=== PATIENT | female | born 1935 | race Hispanic/Latino ===

== ENCOUNTER 2019-01-31 13:41 | Inpatient (IN) | payer OTHER ==
[~2019-01-31] VITALS: Ht 152.4 cm; Wt 63.0 kg
[~2019-01-31 13:41] MED LIST: CALC600T12 PO; CARV3.12 PO; FERR325T29 PO; FURO20TA4 PO; INSU300I SQ; LEVO150T11 PO; LISI10TA7 PO; OMEP20CA10 PO; PRAV20TA4 PO; SITA50TA PO; SULF1TAB42 PO; TYL3 PO
[2019-01-31 14:00] LABS: APPEARANCE,URINE CLEAR (CLEAR); BILIRUBIN,URINE NEGATIVE (NEGATIVE); COLOR,URINE YELLOW (YELLOW); GLUCOSE, URINE (UA) NEGATIVE (NEGATIVE); KETONES,URINE NEGATIVE (NEGATIVE); LEUKOCYTE ESTERASE ,URINE NEGATIVE (NEGATIVE); NITRATE,URINE NEGATIVE (NEGATIVE); OCCULT BLOOD,URINE NEGATIVE (NEGATIVE); PH,URINE 5.5 (5.0-8.0); PROTEIN,URINE TRACE mg/dL (NEGATIVE); UROBILINOGEN,URINE 0.2 mg/dL (0.2-1.0)
[2019-01-31 14:02] LABS: BASOPHILS % (AUTO) 0.5 % (0.0-5.0); EOSINOPHILS % (AUTO) 0.9 % (0.0-8.0); HEMATOCRIT 26.3 % (36-48); LYMPHOCYTES % (AUTO) 37.3 % (21.0-51.0); MEAN CORPUSCULAR HEMOGLOBIN 26.2 pg (27.0-33.0); MEAN CORPUSCULAR HGB CONC 32.5 g/dL (32.0-36.0); MEAN CORPUSCULAR VOLUME 80.7 fL (79-99); MONOCYTES % (AUTO) 12.7 % (3.0-13.0); NEUTROPHILS % (AUTO) 48.6 % (40.0-77.0); PLATELET COUNT (AUTO) 373 K/uL (130-400); RED BLOOD CELL COUNT(AUTO) 3.26 MIL/uL (4.00-5.50); RED CELL DISTRIBUTION WIDTH 14.3 % (11.0-15.5); WHITE BLOOD COUNT (AUTO) 8.1 K/uL (4.8-10.8)
[2019-01-31 14:10] LABS: CREATININE 1.3 mg/dL (0.5-1.5)
[2019-01-31 14:10] LABS: BACTERIA,URINE Rare /HPF (None Seen); MUCUS,URINE Rare LPF (None Seen); RBC,URINE 0-1 /HPF (0-1); SQUAMOUS EPITHELIAL CELL,UR Rare /HPF (0-2); WBC,URINE 0-1 /HPF (0-1)
[2019-01-31] MEDS ORDERED: ONDANSETRON ODT 4 MG TAB ONE (14:14)
[2019-01-31] MEDS ORDERED: MORPHINE SULFATE 4 MG/1ML SYG ONE ×2 (14:15→17:52)
[2019-01-31] MEDS ORDERED: ONDANSETRON HCL 4 MG/2 ML VIAL IV PRN (20:15)
[2019-01-31] MEDS ORDERED: ACETAMINOPHEN 325 MG TAB PO PRN ×2 (20:15)
[2019-01-31] MEDS: FAMOTIDINE/PF 20 MG/2 ML VIAL IV SCH (21:00)
[2019-01-31] MEDS: ENOXAPARIN SODIUM 30 MG/0.3 ML SQ SCH (21:00)
[2019-01-31] MEDS ORDERED: ENOXAPARIN SODIUM 30 MG/0.3 ML SQ ONE (21:38)
[2019-01-31] MEDS ORDERED: FAMOTIDINE/PF 20 MG/2 ML VIAL IV ONE (21:39)
[2019-01-31 22:15] VITALS: BP 137/77
[2019-01-31] MEDS ORDERED: CLOP75TA32 PO (22:41)
[2019-01-31] MEDS ORDERED: LINA5TAB PO (22:41)
[2019-01-31] MEDS ORDERED: ACET1TAB12 PO (22:41)
[2019-01-31] MEDS ORDERED: CETI10TA86 PO (22:41)
[2019-01-31] MEDS ORDERED: GLUCAGON 1MG KIT 1 MG ML IM PRN (23:00)
[2019-01-31] MEDS ORDERED: DEXTROSE 50%-WATER 50 ML DISP.SYRIN IV PRN (23:00)
[2019-01-31] MEDS: MORPHINE SULFATE 2 MG/ML 1ML SYG IV PRN (23:31)
[2019-02-01 04:00] VITALS: BP 122/50
[2019-02-01] MEDS: MORPHINE SULFATE 2 MG/ML 1ML SYG IV PRN ×2 (05:23→09:53)
[2019-02-01] MEDS: INSULIN HUMULIN R 100 UNIT/ML 3ML SQ SCH ×4 (06:03→21:00)
[2019-02-01 08:00] VITALS: BP 151/61
[2019-02-01] MEDS: FAMOTIDINE/PF 20 MG/2 ML VIAL IV SCH ×2 (08:54→21:59)
[2019-02-01] MEDS: ENOXAPARIN SODIUM 30 MG/0.3 ML SQ SCH ×2 (08:55→22:00)
--- NOTE | 2019-02-01 10:10 | NUR ---
ORTHO DR. RAI CALLED TO ANSWER CONSULT PAGE. NEW ORDERS RECEIVED.
[2019-02-01] MEDS: HYDROCODONE/ACETAMINOPHEN 7.5/325 MG TAB PO SCH ×4 (10:30→22:00)
[2019-02-01 11:45] VITALS: BP 131/93
--- NOTE | 2019-02-01 16:00 | NUR ---
PRISCILLA IA MET W PT, CELESTINA, AAOX3, ENG/SINHALA SPKG, VERY [place]; LIVE ALONE, SON ON FACE SHEET WRKS A LOT , HARD TO HELP; BROTHER AISSATOU GARNETT TAKES TO MD ETC. NO PROVIDER SERVICES, HAS WKR WC; STATES "I WAS AT [facility] FOR 100 DAYS; THEN WAS TOLD I HAD TO LEAVE, I OWED A LOT OF MONEY, I DO NOT QUALIFY FOR MEDICAID OR PROVIDER SERVICES' ON THIS ADMIT HAS MOBILITY PROBLEMS , POSS NEED FOR SKILLED CARE, WILL FOLLOW NEEDED Addendum: 02/01/19 at 2001 by JAIMEE GARCIA RN CM Amended: Links added.
[2019-02-01 16:30] VITALS: BP 131/47
--- NOTE | 2019-02-01 18:30 | NUR ---
HOSPITALIST DR. MARIO IN TO SEE PATIENT. NEW ORDERS RECEIVED. DRESSING TO RIGHT FOOT REMOVED AND REDRESSED PER MD ORDER WITH WET TO DRY DRESSING. PATIENT TOLERATED WELL.
[2019-02-01] MEDS ORDERED: SODIUM CHLORIDE 0.9% 1000ML 1,000 ML IV SCH (18:42)
[2019-02-01 19:50] VITALS: BP 157/82
[2019-02-02 00:08] VITALS: BP 128/65
[2019-02-02] MEDS: HYDROCODONE/ACETAMINOPHEN 7.5/325 MG TAB PO SCH ×6 (02:15→22:15)
[2019-02-02 04:20] VITALS: BP 116/50
[2019-02-02 05:16] LABS: MEAN CORPUSCULAR HEMOGLOBIN 26.8 pg (27.0-33.0); MEAN CORPUSCULAR HGB CONC 33.1 g/dL (32.0-36.0); MEAN CORPUSCULAR VOLUME 80.9 fL (79-99); PLATELET COUNT (AUTO) 346 K/uL (130-400); RED BLOOD CELL COUNT(AUTO) 2.59 MIL/uL (4.00-5.50); RED CELL DISTRIBUTION WIDTH 14.2 % (11.0-15.5)
[2019-02-02 05:19] LABS: HEMATOCRIT 20.9 % (36-48)
[2019-02-02 05:24] LABS: CREATININE 1.5 mg/dL (0.5-1.5); POTASSIUM 4.3 mmol/L (3.5-5.1)
[2019-02-02 05:37] LABS: CRP QUANTITATIVE 203.9 mg/L (0.00-9.0)
[2019-02-02] MEDS: INSULIN HUMULIN R 100 UNIT/ML 3ML SQ SCH ×4 (06:20→20:43)
[2019-02-02 06:24] LABS: ERYTHROCYTE SEDIMENTATION RATE 142 MM/HR (0-30)
[2019-02-02] MEDS ORDERED: SODIUM CHLORIDE 0.9% 250 ML IV ONE (07:55)
[2019-02-02 08:00] VITALS: BP 139/68
[2019-02-02] MEDS: FAMOTIDINE/PF 20 MG/2 ML VIAL IV SCH ×2 (08:53→20:15)
[2019-02-02] MEDS ORDERED: VANCOMYCIN PROTOCOL PER PHARMACY IV PRN (09:00)
[2019-02-02] MEDS ORDERED: VANCOMYCIN 1GM+NS 250ML 250 ML IV SCH (09:00)
[2019-02-02] MEDS: VANCOMYCIN 1GM+NS 250ML 250 ML IV SCH (09:15)
[2019-02-02 11:38] VITALS: BP 156/70
[2019-02-02] MEDS: ZOSYN 3.375GM+NS 50ML 50 ML IV SCH ×2 (13:22→20:15)
[2019-02-02 16:44] VITALS: BP 155/61
[2019-02-02 20:00] VITALS: BP 159/63
[2019-02-02] MEDS ORDERED: METOPROLOL TARTRATE 25 MG TAB PO SCH (21:00)
[2019-02-02 21:59] LABS: % IRON SATURATION 5.8 % (22-44)
[2019-02-03] VITALS (7 sets, daily range): BP systolic 102–153; BP diastolic 50–86
[2019-02-03] MEDS: HYDROCODONE/ACETAMINOPHEN 7.5/325 MG TAB PO SCH ×6 (02:13→22:24)
[2019-02-03] MEDS: LACTULOSE 20 GM/30 ML UDCUP PO PRN (03:36)
[2019-02-03] MEDS: ZOSYN 3.375GM+NS 50ML 50 ML IV SCH ×3 (04:09→20:20)
[2019-02-03 05:55] LABS: BASOPHILS % (AUTO) 0.7 % (0.0-5.0); EOSINOPHILS % (AUTO) 4.3 % (0.0-8.0); HEMATOCRIT 28.5 % (36-48); LYMPHOCYTES % (AUTO) 26.5 % (21.0-51.0); MEAN CORPUSCULAR HEMOGLOBIN 27.9 pg (27.0-33.0); MEAN CORPUSCULAR HGB CONC 33.8 g/dL (32.0-36.0); MEAN CORPUSCULAR VOLUME 82.7 fL (79-99); MONOCYTES % (AUTO) 11.3 % (3.0-13.0); NEUTROPHILS % (AUTO) 57.2 % (40.0-77.0); PLATELET COUNT (AUTO) 339 K/uL (130-400); RED BLOOD CELL COUNT(AUTO) 3.45 MIL/uL (4.00-5.50); RED CELL DISTRIBUTION WIDTH 15.8 % (11.0-15.5); WHITE BLOOD COUNT (AUTO) 7.5 K/uL (4.8-10.8)
[2019-02-03 06:01] LABS: HEMOGLOBIN A1C 8.5 % (4.0-6.0)
[2019-02-03 06:07] LABS: CREATININE 1.3 mg/dL (0.5-1.5); MAGNESIUM 1.3 mg/dL (1.80-2.40); PHOSPHORUS 2.6 mg/dL (2.5-4.9); POTASSIUM 4.1 mmol/L (3.5-5.1)
[2019-02-03] MEDS: INSULIN HUMULIN R 100 UNIT/ML 3ML SQ SCH ×4 (06:18→20:20)
[2019-02-03] MEDS: MAGNESIUM 2GM PREMIX 50ML 50 ML IV PRN (06:36)
[2019-02-03 07:01] LABS: ERYTHROCYTE SEDIMENTATION RATE 122 MM/HR (0-30)
[2019-02-03] MEDS ORDERED: IOHEXOL 350 MG/ML 100ML INFUS..BTL IV ONE (10:06)
[2019-02-03] MEDS: FAMOTIDINE/PF 20 MG/2 ML VIAL IV SCH ×2 (10:08→20:20)
[2019-02-03] MEDS: VANCOMYCIN 1GM+NS 250ML 250 ML IV SCH (10:09)
--- NOTE | 2019-02-03 10:25 | NUR ---
TO CT SCAN VIA BED , FOR THE ANGIOGRAM RUNOFF .
--- NOTE | 2019-02-03 11:50 | NUR ---
DR. RAI HERE AND SPOKE WITH FAMILY REGARDING, REMOVE HER RT HEEL DRSG . FOR ASSESSMENT .DR RAI EXPLAIN TO PT OF PENDING RESULTS OF THE CT SCAN ANGIOGRAM.. AND NEEDED TO DECIDE . WHAT SHE WANTED TO HAVE DONE,,, DRSG REAPPLICATION DONE, CLEANSE WOUND WITH SALINE, AND PAD DRY AND STERILE . GAUZE , AND WRAP WITH THE KERLIX . TOLERATE WELL. ELEVATED UP RT LEG ON PILLOW WITH NO PRESSURE TO HEEL AREA SKIN TISSUE RED, AND PINK NOTED NO NECROSIS AREAS . CALL LIGHT IN REACH .
[2019-02-04] MEDS: HYDROCODONE/ACETAMINOPHEN 7.5/325 MG TAB PO SCH ×6 (01:53→22:15)
[2019-02-04 04:00] VITALS: BP 148/50
[2019-02-04] MEDS: ZOSYN 3.375GM+NS 50ML 50 ML IV SCH ×4 (04:27→22:55)
[2019-02-04 06:23] LABS: BASOPHILS % (AUTO) 0.3 % (0.0-5.0); CREATININE 1.3 mg/dL (0.5-1.5); EOSINOPHILS % (AUTO) 3.3 % (0.0-8.0); HEMATOCRIT 28.8 % (36-48); LYMPHOCYTES % (AUTO) 21.1 % (21.0-51.0); MEAN CORPUSCULAR HEMOGLOBIN 27.9 pg (27.0-33.0); MEAN CORPUSCULAR HGB CONC 33.9 g/dL (32.0-36.0); MEAN CORPUSCULAR VOLUME 82.3 fL (79-99); MONOCYTES % (AUTO) 8.2 % (3.0-13.0); NEUTROPHILS % (AUTO) 67.1 % (40.0-77.0); PLATELET COUNT (AUTO) 359 K/uL (130-400); POTASSIUM 4.1 mmol/L (3.5-5.1); RED CELL DISTRIBUTION WIDTH 16.2 % (11.0-15.5); WHITE BLOOD COUNT (AUTO) 9.5 K/uL (4.8-10.8)
[2019-02-04] MEDS: INSULIN HUMULIN R 100 UNIT/ML 3ML SQ SCH ×4 (06:36→21:00)
[2019-02-04 07:52] VITALS: BP 155/48
[2019-02-04] MEDS: FAMOTIDINE/PF 20 MG/2 ML VIAL IV SCH ×2 (08:51→21:10)
--- NOTE | 2019-02-04 10:22 | NUR ---
DR. GRISSOM PAGED . NO. CALLED OF [phone] , PAGER . NO . LEFT TO RETURN CALL
--- NOTE | 2019-02-04 11:00 | NUR ---
DR. GRISSOM OFFICE CALLED , [phone] . STAFF STATED THAT DR. GRISSOM IS NOT IN THE OFFICE, MONDAYS . REPAGED TO NO.[phone]
[2019-02-04 11:34] VITALS: BP 158/60
--- NOTE | 2019-02-04 11:55 | NUR ---
DR. GRISSOM WAS CALLED ,AND REPORT GIVEN REGARDING THE CT ANGIOGRAM DONE. FOR HER ON THE02/03/19, FINDINGS READ TO DR. GRISSOM. . WILL COME IN TO SEE THE PT..
--- NOTE | 2019-02-04 14:24 | NUR ---
CHART REVIEWED COMPLEX DECISION MAKING PRE MDS REQUIRED. PT FRAGILE AND IWLL REQUIRE AFTTER CARE, HAS ALREAYD ADVISED CM THAT SHE 'STAYED 100 DAYS AT A FACILITY AND NOW SHE HAS A BIG BILL AND CANNOT GO BACK' WILL WAIT FOR FURTHER DEVELOPMENTS IN THE PLAN OF CARE. NO ORDERS YET TO SEEK PLACEMENT
[2019-02-04 16:00] VITALS: BP 163/54
--- NOTE | 2019-02-04 19:40 | NUR ---
DR. GRISSOM HERE ,AND SPOKE WITH SON, ANDI REGARDING OF PT. CARE .
[2019-02-04 21:53] VITALS: BP 181/66
[2019-02-05] VITALS (7 sets, daily range): BP systolic 126–182; BP diastolic 59–96
[2019-02-05] MEDS: HYDROCODONE/ACETAMINOPHEN 7.5/325 MG TAB PO SCH ×5 (01:29→21:21)
[2019-02-05 04:21] LABS: BASOPHILS % (AUTO) 0.5 % (0.0-5.0); EOSINOPHILS % (AUTO) 4.4 % (0.0-8.0); HEMATOCRIT 27.6 % (36-48); LYMPHOCYTES % (AUTO) 21.9 % (21.0-51.0); MEAN CORPUSCULAR HEMOGLOBIN 28.3 pg (27.0-33.0); MEAN CORPUSCULAR HGB CONC 33.9 g/dL (32.0-36.0); MEAN CORPUSCULAR VOLUME 83.3 fL (79-99); MONOCYTES % (AUTO) 11.1 % (3.0-13.0); NEUTROPHILS % (AUTO) 62.1 % (40.0-77.0); PLATELET COUNT (AUTO) 359 K/uL (130-400); RED BLOOD CELL COUNT(AUTO) 3.31 MIL/uL (4.00-5.50); RED CELL DISTRIBUTION WIDTH 16.1 % (11.0-15.5); WHITE BLOOD COUNT (AUTO) 7.1 K/uL (4.8-10.8)
[2019-02-05 04:46] LABS: CREATININE 1.1 mg/dL (0.5-1.5); POTASSIUM 3.9 mmol/L (3.5-5.1)
[2019-02-05] MEDS: ZOSYN 3.375GM+NS 50ML 50 ML IV SCH ×3 (05:39→21:21)
[2019-02-05] MEDS: INSULIN HUMULIN R 100 UNIT/ML 3ML SQ SCH ×4 (06:49→21:00)
[2019-02-05] MEDS ORDERED: VANCOMYCIN 1GM+NS 250ML 250 ML IV SCH (09:00)
[2019-02-05] MEDS: FAMOTIDINE/PF 20 MG/2 ML VIAL IV SCH ×2 (09:26→21:21)
[2019-02-05] MEDS: VANCOMYCIN 1GM+NS 250ML 250 ML IV SCH (09:27)
--- NOTE | 2019-02-05 11:30 | NUR ---
obtain wound care orders pt had at home from home health ask dr. craig if ok to continue here in the hospital stated, to hold on wound care since pt has not improved in the last 6 months with those orders
--- NOTE | 2019-02-05 14:06 | NUR ---
WOUND CARE CHRISTEL DAVIS
--- NOTE | 2019-02-05 16:00 | NUR ---
dr. menon rounded on pt stated will talk to dr. caldera and was thinking of instead of a right below the knee amputation to to a partial heel amputation but will talk about it with dr. caldera no orders to consult dr. caldera yet
--- NOTE | 2019-02-05 18:51 | NUR ---
Nutrition Intervention: Nutrition screen based on LOS x 5 days. Pt. admitted with Dx of Left Knee Effusion, Intractable Pain, Osteoarthritis. Pt. on 75gm CCD diet with good p.o. intake, per pt. Labs reviewed(Alb 2.0, BG 156, HgbA1c 8.5%). LBM: 02/04/19. SR-18, elastic. Pt. with 1+ edema to LLE. BMI: 27.1, normal for age. Pt. educated on diabetic diet and provided with education material. Pt. verbalized understanding. Recommendations: 1) Continue current diet. 2) Rec. 30ml ProMod TID with meals. 3) Diabetic diet education given to patient. 4) Continue to monitor pt's nutritional status. 5) Consult RD as nutrition concerns arise. Addendum: 02/05/19 at [address] Amended: Links added.
--- NOTE | 2019-02-05 18:52 | NUR ---
dr. craig rounded on pt inform of dr. menon's orders and dr. menon's plans of communicating with dr. werner nguyen spoke w patient but pt at end stated that she would rather have him talk to her brother as per pt's wishes and dr. gabriel orders, have pt's brother here tomorrow from 4-[address] gabriel will speak to him about options and possible plan of care brother called, and inform of above . stated will be here at that time .
[2019-02-05] MEDS ORDERED: HYDRALAZINE HCL 20 MG/ML VIAL IV PRN (21:45)
[2019-02-06] VITALS (8 sets, daily range): BP systolic 108–176; BP diastolic 59–87
[2019-02-06] MEDS: HYDROCODONE/ACETAMINOPHEN 7.5/325 MG TAB PO SCH ×6 (02:15→22:15)
[2019-02-06 04:40] LABS: HEMATOCRIT 29.5 % (36-48); MEAN CORPUSCULAR HEMOGLOBIN 27.3 pg (27.0-33.0); MEAN CORPUSCULAR HGB CONC 32.8 g/dL (32.0-36.0); MEAN CORPUSCULAR VOLUME 83.3 fL (79-99); PLATELET COUNT (AUTO) 435 K/uL (130-400); RED BLOOD CELL COUNT(AUTO) 3.54 MIL/uL (4.00-5.50); RED CELL DISTRIBUTION WIDTH 16.1 % (11.0-15.5); WHITE BLOOD COUNT (AUTO) 7.4 K/uL (4.8-10.8)
[2019-02-06 05:15] LABS: CREATININE 1.1 mg/dL (0.5-1.5); CRP QUANTITATIVE 161.8 mg/L (0.00-9.0); MAGNESIUM 1.4 mg/dL (1.80-2.40); PHOSPHORUS 2.5 mg/dL (2.5-4.9); POTASSIUM 3.8 mmol/L (3.5-5.1)
[2019-02-06] MEDS: ZOSYN 3.375GM+NS 50ML 50 ML IV SCH ×3 (05:38→20:56)
[2019-02-06 05:53] LABS: ERYTHROCYTE SEDIMENTATION RATE 128 MM/HR (0-30)
[2019-02-06] MEDS: INSULIN HUMULIN R 100 UNIT/ML 3ML SQ SCH ×4 (06:21→20:56)
[2019-02-06] MEDS: LEVOTHYROXINE 150 MCG TABLET PO SCH (06:42)
[2019-02-06] MEDS: LISINOPRIL 5 MG TABLET PO SCH (08:56)
[2019-02-06] MEDS: FUROSEMIDE 20 MG TABLET PO SCH (08:56)
[2019-02-06] MEDS: LINAGLIPTIN 5 MG TABLET PO SCH (08:56)
[2019-02-06] MEDS: FAMOTIDINE/PF 20 MG/2 ML VIAL IV SCH ×2 (08:57→20:54)
[2019-02-06] MEDS: VANCOMYCIN 1GM+NS 250ML 250 ML IV SCH (08:57)
--- NOTE | 2019-02-06 10:00 | NUR ---
DR. VIJAY JEFFERSON PAGED REGARDING CONSULT. AWAITING CALLBACK.
[2019-02-06] MEDS: MAGNESIUM 2GM PREMIX 50ML 50 ML IV PRN (17:47)
[2019-02-06] MEDS: ATORVASTATIN CALCIUM 10 MG TABLET PO SCH (20:55)
[2019-02-07] MEDS: HYDROCODONE/ACETAMINOPHEN 7.5/325 MG TAB PO SCH ×5 (02:15→17:27)
[2019-02-07 03:16] VITALS: BP 143/51
[2019-02-07 04:10] LABS: HEMATOCRIT 29.6 % (36-48); MEAN CORPUSCULAR HEMOGLOBIN 28.4 pg (27.0-33.0); MEAN CORPUSCULAR HGB CONC 34.4 g/dL (32.0-36.0); MEAN CORPUSCULAR VOLUME 82.5 fL (79-99); PLATELET COUNT (AUTO) 465 K/uL (130-400); RED BLOOD CELL COUNT(AUTO) 3.59 MIL/uL (4.00-5.50); RED CELL DISTRIBUTION WIDTH 16.3 % (11.0-15.5); WHITE BLOOD COUNT (AUTO) 6.6 K/uL (4.8-10.8)
[2019-02-07 04:22] LABS: CREATININE 1.1 mg/dL (0.5-1.5); POTASSIUM 3.6 mmol/L (3.5-5.1)
[2019-02-07] MEDS: ZOSYN 3.375GM+NS 50ML 50 ML IV SCH ×3 (05:34→21:09)
[2019-02-07] MEDS: LEVOTHYROXINE 150 MCG TABLET PO SCH (05:53)
[2019-02-07] MEDS: INSULIN HUMULIN R 100 UNIT/ML 3ML SQ SCH ×4 (06:19→21:12)
--- NOTE | 2019-02-07 07:03 | NUR ---
PATIENT UPDATE Pt slept well overnight, scheduled pain med wasn't given as scheduled. Not in any form of discomfort last night, stated that she's pain free at 0400. Was given the [place] 1 tab at 0600 when she complained about the left knee pain. Patient pending xray of the rt foot 3 views as well as mri without contrast as per Dr. Cook's order for this am. Talked to brother over the phone about the plan of care for today, concerns addressed.
[2019-02-07 07:53] VITALS: BP 146/58
[2019-02-07] MEDS ORDERED: HONEY 1 APPL/ML TUBE TP SCH ×2 (09:00→10:21)
[2019-02-07 11:06] VITALS: BP 168/60
[2019-02-07] MEDS: LINAGLIPTIN 5 MG TABLET PO SCH (11:13)
[2019-02-07] MEDS: FAMOTIDINE/PF 20 MG/2 ML VIAL IV SCH ×2 (11:13→21:09)
[2019-02-07] MEDS: FUROSEMIDE 20 MG TABLET PO SCH (11:14)
[2019-02-07] MEDS: LISINOPRIL 5 MG TABLET PO SCH (11:14)
[2019-02-07] MEDS: VANCOMYCIN 1GM+NS 250ML 250 ML IV SCH (11:15)
[2019-02-07 16:31] VITALS: BP 162/98
[2019-02-07] MEDS: LACTULOSE 20 GM/30 ML UDCUP PO PRN (17:27)
[2019-02-07 19:27] VITALS: BP 150/60
[2019-02-07] MEDS: ATORVASTATIN CALCIUM 10 MG TABLET PO SCH (21:09)
[2019-02-07 23:23] VITALS: BP 145/58
[2019-02-08] MEDS: HYDROCODONE/ACETAMINOPHEN 7.5/325 MG TAB PO SCH ×5 (02:15→22:15)
[2019-02-08 03:20] VITALS: BP 169/63
[2019-02-08 04:30] LABS: HEMATOCRIT 33.7 % (36-48); MEAN CORPUSCULAR HEMOGLOBIN 27.4 pg (27.0-33.0); MEAN CORPUSCULAR HGB CONC 33.5 g/dL (32.0-36.0); MEAN CORPUSCULAR VOLUME 81.8 fL (79-99); PLATELET COUNT (AUTO) 558 K/uL (130-400); RED BLOOD CELL COUNT(AUTO) 4.12 MIL/uL (4.00-5.50); RED CELL DISTRIBUTION WIDTH 16.5 % (11.0-15.5); WHITE BLOOD COUNT (AUTO) 7.3 K/uL (4.8-10.8)
[2019-02-08 04:33] LABS: CREATININE 1.1 mg/dL (0.5-1.5); POTASSIUM 3.3 mmol/L (3.5-5.1)
[2019-02-08] MEDS: ZOSYN 3.375GM+NS 50ML 50 ML IV SCH ×3 (05:40→22:14)
[2019-02-08] MEDS: LEVOTHYROXINE 150 MCG TABLET PO SCH ×2 (05:45→05:51)
[2019-02-08] MEDS: INSULIN HUMULIN R 100 UNIT/ML 3ML SQ SCH ×4 (05:46→22:29)
--- NOTE | 2019-02-08 07:00 | NUR ---
PATIENT UPDATE MEDICATED ONCE FOR PAIN THIS AM WITH NORCO. WAS VERY CONSTIPATED WITH THE LAST BM SINCE THE 8, WAS GIVEN LACTULOSE BY PREV SHIFT WHICH DIDNT WORK. PT OFFERED WARMED PRUNE JUICE WHICH SHE TOLERATED WELL, HAD A GOOD BOWEL MOVEMENT LAST NIGHT WELL EARLY AM TODAY. CONTINUES ON THE SAME REGIMEN PREV PRESCRIBED. DR. LINARES ROUNDED LAST NIGHT AND DISCUSSED ABOUT THE PLAN FOR SURGERY, TO HAVE THE BROTHER TALK TO THE PT AND THE REST OF THE FAMILY MEMBERS ABOUT THE PLAN AND WILL LET THE MD KNOW IF PT AGREES FOR THE SURGERY. PT AFEBRILE, VITAL SIGNS STABLE, DRESSING TO THE RT HEEL DRY AND INTACT.
[2019-02-08 08:00] VITALS: BP 142/58
--- NOTE | 2019-02-08 08:30 | NUR ---
DR. RAI CALLED STATED HE WILL NOT BE DOING A LEFT TKA AT THE MOMENT , SINCE THE RIGHT FOOT NEEDS TO BE ADDRESS FIRST DR. RAI STATED, DR. LINARES WILL BE PERFORMING A PARTIAL AMPUTATION OF THE BONE IN THE PT'S HEEL
[2019-02-08] MEDS: FAMOTIDINE/PF 20 MG/2 ML VIAL IV SCH ×2 (09:29→22:14)
[2019-02-08] MEDS: FUROSEMIDE 20 MG TABLET PO SCH (09:29)
[2019-02-08] MEDS: LINAGLIPTIN 5 MG TABLET PO SCH (09:29)
[2019-02-08] MEDS: LISINOPRIL 5 MG TABLET PO SCH (09:30)
[2019-02-08] MEDS ORDERED: VANCOMYCIN PROTOCOL PER PHARMACY IV SCH (10:45)
[2019-02-08] MEDS: VANCOMYCIN 1GM+NS 250ML 250 ML IV SCH (10:54)
[2019-02-08 12:00] VITALS: BP 156/64
--- NOTE | 2019-02-08 14:00 | NUR ---
DR. OLVERA AWARE OF PT'S CONSULT
--- NOTE | 2019-02-08 15:18 | NUR ---
DR. LINARES PAGED FOR POSSIBLE SX ORDERS
[2019-02-08 16:00] VITALS: BP 142/66
--- NOTE | 2019-02-08 16:00 | NUR ---
HOME HEALTH INFO RECD INTO THAT [facility] IS CURRENT [facility]- INFO ON IN THE IA BECAUSE PT DID NOT REMEMBER NAME Addendum: 02/08/19 at 1950 by JAIMEE GARCIA RN CM Amended: Links added.
--- NOTE | 2019-02-08 17:00 | NUR ---
PRISCILLA NOTE - SNF? PT VISITED BY PRISCILLA. AGAIN REQUEST TO CONSIDER DC PLANS. PT WAS AT [facility] FOR > 100 DAYS ; STATES THEY MADE HER LEAVE AND SHE OWES MONEY, SHE DOES NTO [facility] THEY WILL TAKE HER BACK, ADVISED PT THAT ANOTHER FACLITY WOULD BE ABLE TO FIND OUT IF MONEY WAS OWED. MAY BE BETTER TO BE ASSESSED BY [facility]. PT AGAIN DECLINED ANY DECISION RE SNF. PT STATES SHE WANTS SOMEONE TO HELP HER AT HOME. Addendum: 02/08/19 at 1949 by JAIMEE GARCIA RN CM Amended: Links added.
--- NOTE | 2019-02-08 17:09 | NUR ---
NO CALL BACK, DR. VIJAY CANALES GAIN, THIS TIME TO HIS CELLPHONE NO ANSWER WILL TRY AGAIN LATER
[2019-02-08 19:00] VITALS: BP 151/60
--- NOTE | 2019-02-08 19:00 | NUR ---
Received pt as a transfer fro 4rth floor per bed, son Lang Willis was notified.
--- NOTE | 2019-02-08 20:30 | NUR ---
PM Assessment Received pt with no family at the bedside, routine assessment done, pt confirm awareness plan for surgery tomorrow, pt wants to make sure surgery is only for her right heel & not to amputate her right leg. Assurance given that that is what was ordered. NPO post MN instructed to the pt & agreed to have a bed bath in Am at 0500. Pt currently denies discomfort. IV access to the LFA gauge 18 noted tender, (+) redness, no blood return, discontinue aseptically with catheter tip intact.
[2019-02-08] MEDS: ATORVASTATIN CALCIUM 10 MG TABLET PO SCH (22:15)
[2019-02-09] VITALS (21 sets, daily range): BP systolic 105–183; BP diastolic 48–73
[2019-02-09] MEDS: HYDROCODONE/ACETAMINOPHEN 7.5/325 MG TAB PO SCH ×6 (02:15→22:15)
[2019-02-09 05:05] LABS: BASOPHILS % (AUTO) 0.4 % (0.0-5.0); EOSINOPHILS % (AUTO) 2.8 % (0.0-8.0); HEMATOCRIT 32.7 % (36-48); MEAN CORPUSCULAR HEMOGLOBIN 27.5 pg (27.0-33.0); MEAN CORPUSCULAR HGB CONC 33.4 g/dL (32.0-36.0); MEAN CORPUSCULAR VOLUME 82.2 fL (79-99); MONOCYTES % (AUTO) 9.5 % (3.0-13.0); NEUTROPHILS % (AUTO) 57.3 % (40.0-77.0); NUCLEATED RED BLOOD CELLS 0.1 % (0.0-0.19); PLATELET COUNT (AUTO) 527 K/uL (130-400); RED BLOOD CELL COUNT(AUTO) 3.99 MIL/uL (4.00-5.50); RED CELL DISTRIBUTION WIDTH 16.3 % (11.0-15.5); WHITE BLOOD COUNT (AUTO) 8.6 K/uL (4.8-10.8)
[2019-02-09] MEDS: ZOSYN 3.375GM+NS 50ML 50 ML IV SCH ×3 (05:13→20:26)
[2019-02-09 05:23] LABS: CREATININE 1.2 mg/dL (0.5-1.5); POTASSIUM 3.2 mmol/L (3.5-5.1)
[2019-02-09] MEDS: INSULIN HUMULIN R 100 UNIT/ML 3ML SQ SCH ×4 (06:31→20:39)
[2019-02-09] MEDS: LEVOTHYROXINE 150 MCG TABLET PO SCH (07:30)
[2019-02-09] MEDS: LINAGLIPTIN 5 MG TABLET PO SCH (09:00)
[2019-02-09] MEDS: FUROSEMIDE 20 MG TABLET PO SCH (09:00)
[2019-02-09] MEDS: LISINOPRIL 5 MG TABLET PO SCH (09:00)
[2019-02-09] MEDS: VANCOMYCIN 1GM+NS 250ML 250 ML IV SCH (09:28)
[2019-02-09] MEDS: FAMOTIDINE/PF 20 MG/2 ML VIAL IV SCH ×2 (09:29→20:26)
[2019-02-09] MEDS ORDERED: SODIUM CHLORIDE 0.9% 1000ML 1,000 ML IV ONE (10:19)
[2019-02-09] MEDS ORDERED: PROPOFOL 10 MG/ML 20ML VIAL IV ONE (10:29)
[2019-02-09] MEDS ORDERED: FENTANYL CITRATE PF 50 MCG/1 ML 2ML VIAL ONE (10:29)
[2019-02-09] MEDS ORDERED: MIDAZOLAM HCL 1 MG/ML 2ML VIAL ONE (10:29)
[2019-02-09] MEDS ORDERED: LIDOCAINE HCL 1% 20 ML VIAL ONE (10:30)
[2019-02-09] MEDS ORDERED: BUPIVACAINE/PF 0.5% 30ML VIAL ONE (10:30)
--- NOTE | 2019-02-09 13:20 | NUR ---
PROCEDURE REPORT RECEIVED FROM JAQUELIN LIND (PACU). PATIENT S/P CUTTING OF THE SKIN SOFT TISSUE AND BONE WITH REMOVAL OF PORTION OF RIGHT HEEL BONE WITH RIGHT TENDON REPAIR. DRESSING DRY AND INTACT. PATIENT STABLE AT THIS TIME.
[2019-02-09] MEDS ORDERED: HYDROMORPHONE 1 MG/1 ML AMP IVP PRN (13:45)
[2019-02-09] MEDS ORDERED: MORPHINE SULFATE 2 MG/ML 1ML SYG IVP PRN (13:45)
[2019-02-09] MEDS: ATORVASTATIN CALCIUM 10 MG TABLET PO SCH (20:26)
[2019-02-10] VITALS (7 sets, daily range): BP systolic 144–164; BP diastolic 54–79
[2019-02-10] MEDS: HYDROCODONE/ACETAMINOPHEN 7.5/325 MG TAB PO SCH ×6 (01:03→23:16)
[2019-02-10 05:14] LABS: MEAN CORPUSCULAR HEMOGLOBIN 27.5 pg (27.0-33.0); MEAN CORPUSCULAR HGB CONC 33.6 g/dL (32.0-36.0); MEAN CORPUSCULAR VOLUME 81.9 fL (79-99); PLATELET COUNT (AUTO) 539 K/uL (130-400); RED BLOOD CELL COUNT(AUTO) 3.42 MIL/uL (4.00-5.50); RED CELL DISTRIBUTION WIDTH 16.7 % (11.0-15.5); WHITE BLOOD COUNT (AUTO) 9.7 K/uL (4.8-10.8)
[2019-02-10] MEDS: ZOSYN 3.375GM+NS 50ML 50 ML IV SCH ×3 (05:15→22:11)
[2019-02-10 05:20] LABS: CREATININE 1.2 mg/dL (0.5-1.5); MAGNESIUM 1.3 mg/dL (1.80-2.40); POTASSIUM 3.3 mmol/L (3.5-5.1)
[2019-02-10 05:40] LABS: EOSINOPHILS % (MANUAL) 1 % (1-6); LYMPHOCYTES % (MANUAL) 32 % (22-44); MAN.DIFF COMMENT-IMPRESSION MANUAL DIFFERENTIAL; MONOCYTES % (MANUAL) 5 % (2-9); SEGMENTED NEUTROPHILS % 62 % (40-70)
[2019-02-10] MEDS: INSULIN HUMULIN R 100 UNIT/ML 3ML SQ SCH ×4 (06:51→21:00)
[2019-02-10] MEDS: LEVOTHYROXINE 150 MCG TABLET PO SCH (06:52)
[2019-02-10] MEDS: FAMOTIDINE/PF 20 MG/2 ML VIAL IV SCH ×2 (08:54→22:09)
[2019-02-10] MEDS: LINAGLIPTIN 5 MG TABLET PO SCH (08:54)
[2019-02-10] MEDS: LISINOPRIL 5 MG TABLET PO SCH (08:54)
[2019-02-10] MEDS: FUROSEMIDE 20 MG TABLET PO SCH (08:54)
[2019-02-10] MEDS: VANCOMYCIN 1GM+NS 250ML 250 ML IV SCH (08:55)
--- NOTE | 2019-02-10 14:53 | NUR ---
SNF Met with pt this afternoon to discuss Md recommendations for SNF @ [place] for IV ABX. Pt w concerns regarding out of pocket costs. Informed her will not know unless facility runs her benefits. YANELY/PC consent obtained for [facility] as first choice, M[facility] and [facility]. Clinical faxedto [facility]. Susy informed of new referral.
[2019-02-10] MEDS: MAGNESIUM 2GM PREMIX 50ML 50 ML IV PRN (19:31)
[2019-02-10] MEDS: ATORVASTATIN CALCIUM 10 MG TABLET PO SCH (22:09)
[2019-02-11] VITALS (7 sets, daily range): BP systolic 136–179; BP diastolic 52–117
[2019-02-11] MEDS: HYDROCODONE/ACETAMINOPHEN 7.5/325 MG TAB PO SCH ×6 (02:15→22:40)
[2019-02-11 05:03] LABS: HEMATOCRIT 25.5 % (36-48); MEAN CORPUSCULAR HEMOGLOBIN 29.5 pg (27.0-33.0); MEAN CORPUSCULAR VOLUME 84.4 fL (79-99); PLATELET COUNT (AUTO) 434 K/uL (130-400); RED BLOOD CELL COUNT(AUTO) 3.02 MIL/uL (4.00-5.50); RED CELL DISTRIBUTION WIDTH 16.8 % (11.0-15.5); WHITE BLOOD COUNT (AUTO) 8.5 K/uL (4.8-10.8)
[2019-02-11 05:11] LABS: CREATININE 1.2 mg/dL (0.5-1.5)
[2019-02-11 05:18] LABS: POTASSIUM 2.8 mmol/L (3.5-5.1)
[2019-02-11 05:26] LABS: MAGNESIUM 1.7 mg/dL (1.80-2.40)
[2019-02-11] MEDS: ZOSYN 3.375GM+NS 50ML 50 ML IV SCH ×3 (05:52→22:38)
[2019-02-11] MEDS: MAGNESIUM 2GM PREMIX 50ML 50 ML IV PRN (05:59)
[2019-02-11] MEDS ORDERED: POTASSIUM CHLORIDE 20MEQ/100ML 100 ML IV PRN (06:00)
[2019-02-11] MEDS ORDERED: LIDOCAINE HCL-MPF 1% 2ML VIAL IVP PRN (06:00)
[2019-02-11] MEDS ORDERED: POTASSIUM CHLORIDE 10% ELIXIR 20 MEQ/15 ML UDCUP PO PRN (06:00)
[2019-02-11] MEDS: POTASSIUM CHLORIDE 20 MEQ ERTAB PO PRN ×3 (06:08→22:39)
[2019-02-11] MEDS: INSULIN HUMULIN R 100 UNIT/ML 3ML SQ SCH ×4 (06:15→22:36)
[2019-02-11] MEDS: LEVOTHYROXINE 150 MCG TABLET PO SCH (06:34)
[2019-02-11] MEDS: FUROSEMIDE 20 MG TABLET PO SCH (08:44)
[2019-02-11] MEDS: LINAGLIPTIN 5 MG TABLET PO SCH (08:44)
[2019-02-11] MEDS: LISINOPRIL 5 MG TABLET PO SCH (08:44)
[2019-02-11] MEDS: FAMOTIDINE/PF 20 MG/2 ML VIAL IV SCH ×2 (08:44→22:39)
[2019-02-11] MEDS: VANCOMYCIN 1GM+NS 250ML 250 ML IV SCH (10:48)
--- NOTE | 2019-02-11 14:22 | NUR ---
UPDATE TO [facility]- LENGTH OF ABX UPDATES SENT. ANTICIPATE 6 WEEKS TOTAL OF IV ABX PER DR. Elam
[2019-02-11] MEDS: NYSTATIN 15 GM POWDER TP SCH ×2 (14:57→22:40)
[2019-02-11] MEDS ORDERED: COMPOUND IV REFRIGERATED 1 EACH IVSOLN MISC PRN (16:00)
[2019-02-11] MEDS: ATORVASTATIN CALCIUM 10 MG TABLET PO SCH (22:39)
[2019-02-12] MEDS: HYDROCODONE/ACETAMINOPHEN 7.5/325 MG TAB PO SCH ×5 (02:15→19:21)
[2019-02-12 04:00] VITALS: BP 154/61
[2019-02-12 05:16] LABS: BASOPHILS % (AUTO) 0.6 % (0.0-5.0); HEMATOCRIT 27.2 % (36-48); LYMPHOCYTES % (AUTO) 31.1 % (21.0-51.0); MEAN CORPUSCULAR HEMOGLOBIN 27.3 pg (27.0-33.0); MEAN CORPUSCULAR HGB CONC 33.4 g/dL (32.0-36.0); MEAN CORPUSCULAR VOLUME 81.8 fL (79-99); MONOCYTES % (AUTO) 11.3 % (3.0-13.0); PLATELET COUNT (AUTO) 481 K/uL (130-400); RED BLOOD CELL COUNT(AUTO) 3.32 MIL/uL (4.00-5.50); RED CELL DISTRIBUTION WIDTH 16.9 % (11.0-15.5); WHITE BLOOD COUNT (AUTO) 7.7 K/uL (4.8-10.8)
[2019-02-12 05:33] LABS: CREATININE 1.1 mg/dL (0.5-1.5); MAGNESIUM 1.5 mg/dL (1.80-2.40); POTASSIUM 3.8 mmol/L (3.5-5.1)
[2019-02-12] MEDS: ZOSYN 3.375GM+NS 50ML 50 ML IV SCH ×2 (05:33→12:24)
[2019-02-12] MEDS: INSULIN HUMULIN R 100 UNIT/ML 3ML SQ SCH ×3 (06:15→17:30)
--- NOTE | 2019-02-12 06:45 | NUR ---
VIJAY Cook made rounds and changed dressing to right heel. Applied a betadine cast dressing to right heel. Patient resting in bed and tolerated the dressing change. States no pain at this time. Call light within reach. Encouraged to call for assistance.
[2019-02-12 07:30] VITALS: BP 152/59
[2019-02-12] MEDS: LEVOTHYROXINE 150 MCG TABLET PO SCH (07:57)
[2019-02-12] MEDS ORDERED: VANCOMYCIN 750MG + NS 250 ML IV SCH ×2 (09:00)
[2019-02-12] MEDS: LISINOPRIL 5 MG TABLET PO SCH (09:55)
[2019-02-12] MEDS: FAMOTIDINE/PF 20 MG/2 ML VIAL IV SCH (09:55)
[2019-02-12] MEDS: LINAGLIPTIN 5 MG TABLET PO SCH (09:55)
[2019-02-12] MEDS: FUROSEMIDE 20 MG TABLET PO SCH (09:55)
[2019-02-12] MEDS: NYSTATIN 15 GM POWDER TP SCH (09:56)
[2019-02-12 11:00] VITALS: BP 146/59
[2019-02-12 11:00] LABS: PROTHROMBIN TIME 10.5 SEC (9.6-11.6)
--- NOTE | 2019-02-12 12:53 | NUR ---
RD Follow up Note Patient tolerating 75gm CCD with good PO intake (75%). Patient reports good appetite with no report of GI distress. Patient LBM 02/10/19. Patient monitored labs: GFR 51, Glu 126, Ca 8.3, Mg 1.50. Patient with right foot diabetic ulcer; Rec to add Ian BID, Vitamin C, Zinc for wound healing support. RD to continue to monitor. Please notify RD as nutritional concerns arise. Thank you. Addendum: 02/12/19 at [address] Amended: Links added.
[2019-02-12 16:00] VITALS: BP 143/55
--- NOTE | 2019-02-12 16:44 | NUR ---
PICC LINE NURSE HERE AND 7 MOHAWK DOUBLE LUMEN PLACED IN RIGHT UPPER ARM, TAPED AND SECURED AND STAT CHEST X-RAY ORDERED , PENDING RESULTS
[2019-02-12] MEDS: MAGNESIUM 2GM PREMIX 50ML 50 ML IV PRN (17:28)
--- NOTE | 2019-02-12 20:33 | NUR ---
REPORT CALLED TO SNF AND CHART COPIED, IV REMOVED AND SITE DRESSED, DISCHARGE INSTRUCTION GIVEN TO PATIENT ( BROTHER WAS HERE THE AFTERNOON AND IS AWARE OF PATIENT MOVE TO [facility] ) BELONGINGS GATHER AND LOAD IN BAGS FOR PATIENT. PATIENT DENIES PAIN AT THIS TIME. EMS CALLED FOR TRANSPORTATION. ENS ON SITE AND REPORT GIVEN TO EMS AND PATIENT LEFT WITH EMS STAFF
== END 2019-02-12 20:20 | DRG 628 ==
LOC: EDH 13:41 → EDHIP 19:25 → OBSVTOIN 19:25 → 4AH 22:30 → 4BH 02-04 11:56 → 3BH 02-08 19:04
PROVIDERS: ADMIT Internal Medicine; ATTEND Internal Medicine
PROC: 30233N1 Transfusion of Nonautologous Red Blood Cells into Peripheral Vein, Percutaneous Approach (ICD-10-PCS; 2019-02-09)
PROC: 0QBL0ZZ Excision of Right Tarsal, Open Approach (ICD-10-PCS; principal; 2019-02-09 10:30)
PROC: 0LXN0ZZ Transfer Right Lower Leg Tendon, Open Approach (ICD-10-PCS; 2019-02-09 10:30)
DX: E11.69 Type 2 diabetes mellitus with other specified complication (principal); E43 Unspecified severe protein-calorie malnutrition; M86.8X7 Other osteomyelitis, ankle and foot; L97.419 Non-pressure chronic ulcer of right heel and midfoot with unspecified severity; M86.9 Osteomyelitis, unspecified; M71.20 Synovial cyst of popliteal space [Baker], unspecified knee; M25.462 Effusion, left knee; M17.12 Unilateral primary osteoarthritis, left knee; D64.9 Anemia, unspecified; E11.621 Type 2 diabetes mellitus with foot ulcer; E11.51 Type 2 diabetes mellitus with diabetic peripheral angiopathy without gangrene; E03.9 Hypothyroidism, unspecified; E11.622 Type 2 diabetes mellitus with other skin ulcer; E78.5 Hyperlipidemia, unspecified; E87.6 Hypokalemia; G89.29 Other chronic pain; Z68.27 Body mass index [BMI] 27.0-27.9, adult; I10 Essential (primary) hypertension; I70.0 Atherosclerosis of aorta; I70.209 Unspecified atherosclerosis of native arteries of extremities, unspecified extremity; L08.9 Local infection of the skin and subcutaneous tissue, unspecified; L97.519 Non-pressure chronic ulcer of other part of right foot with unspecified severity; Z79.4 Long term (current) use of insulin; Z98.42 Cataract extraction status, left eye; Z98.41 Cataract extraction status, right eye; Z90.710 Acquired absence of both cervix and uterus; Z83.3 Family history of diabetes mellitus; Z82.49 Family history of ischemic heart disease and other diseases of the circulatory system
CPT/HCPCS: 36415; 36430; 71045; 73562; 73630; 73650; 73700; 73718; 75635; 80048; 80202; 81001; 82040; 82948; 83036; 83540; 83550; 83605; 83735; 83880; 84100; 84145; 84550; 85025; 85027; 85610; 85651; 86140; 86850; 86900; 86901; 86922; 87070; 87076; 87205; 93306; 93923; 93971; 97039; A4606; C1894; G0378; J0360; J1650; J1815; J2250; J2270; J2405; J2543; J2704; J3010; J3370; J3475; J3480; J3490; J7030; P9016; Q9967

== ENCOUNTER 2022-02-15 10:12 | Emergency (ER) | payer OTHER ==
[~2022-02-15] VITALS: Ht 157.5 cm; Wt 67.6 kg
[~2022-02-15 10:12] MED LIST changes: +ACET1TAB12 PO; -CALC600T12 PO; -CARV3.12 PO; +CETI10TA87 PO; +CLOP75TA32 PO; -FERR325T29 PO; -INSU300I SQ; +LINA5TAB PO; +LISI10TA24 PO; -LISI10TA7 PO; -OMEP20CA10 PO; -SITA50TA PO; -SULF1TAB42 PO; -TYL3 PO
[2022-02-15] MEDS ORDERED: ACETAMINOPHEN 325 MG TAB PO ONE (11:30)
[2022-02-15] MEDS ORDERED: LIDOCAINE 5% TOPICAL PATCH TP SCH (14:00)
[2022-02-15 14:30] VITALS: BP 148/64
[2022-02-15] MEDS ORDERED: LIDOP TD (14:51)
== END 2022-02-15 14:54 | disposition home or self-care (01) ==
LOC: EDH 10:12
DX: S00.03XA Contusion of scalp, initial encounter (principal); S30.0XXA Contusion of lower back and pelvis, initial encounter; S20.224A Contusion of middle back wall of thorax, initial encounter; M48.00 Spinal stenosis, site unspecified; E11.9 Type 2 diabetes mellitus without complications; E78.00 Pure hypercholesterolemia, unspecified; I10 Essential (primary) hypertension; Z98.890 Other specified postprocedural states; Z79.899 Other long term (current) drug therapy; W18.30XA Fall on same level, unspecified, initial encounter; Y93.89 Activity, other specified; Y92.89 Other specified places as the place of occurrence of the external cause; Y99.8 Other external cause status
CPT/HCPCS: 70450; 72125; 72131

== ENCOUNTER 2022-08-04 01:31 | Observation (INO) | payer OTHER ==
[~2022-08-04] VITALS: Ht 152.4 cm; Wt 70.7 kg
[~2022-08-04 01:31] MED LIST changes: -ACET1TAB12 PO; +ASPI-1005 PO; -CETI10TA87 PO; +CHOL4POW4 PO; +FERS325 PO; +FOLI0.8T22 PO; +FOLI0.8T3 PO; -FURO20TA4 PO; +FURO20TA6 PO; +LEVO125C4 PO; -LEVO150T11 PO; -LISI10TA24 PO; +LISI20TA24 PO; +LORA10TA7 PO; +METO25 PO; -PRAV20TA4 PO; +SIMV40TA59 PO
[2022-08-04 02:08] LABS: ABG BASE EXCESS -7.5 mmol/L (-2.0-3.0); ABG HCO3 17.3 mmol/L (21.0-28.0); ABG OXYGEN SATURATION 92.3 % (95.0-99.0); ABG PCO2 32 mmHg (32-45)
[2022-08-04 02:09] LABS: BASOPHILS % (AUTO) 0.5 % (0.0-5.0); EOSINOPHILS % (AUTO) 0.5 % (0.0-8.0); HEMATOCRIT 23.6 % (36-48); LYMPHOCYTES % (AUTO) 21.8 % (21.0-51.0); MEAN CORPUSCULAR HEMOGLOBIN 29.2 pg (27.0-33.0); MEAN CORPUSCULAR HGB CONC 32.2 g/dL (32.0-36.0); MEAN CORPUSCULAR VOLUME 90.8 fL (79-99); MONOCYTES % (AUTO) 8.7 % (3.0-13.0); NEUTROPHILS % (AUTO) 67.8 % (40.0-77.0); PLATELET COUNT (AUTO) 265 K/uL (130-400); RED CELL DISTRIBUTION WIDTH 14.3 % (11.0-15.5); WHITE BLOOD COUNT (AUTO) 8.3 K/uL (4.8-10.8)
[2022-08-04 02:28] LABS: APPEARANCE,URINE CLEAR (CLEAR); BILIRUBIN,URINE NEGATIVE (NEGATIVE); COLOR,URINE LIGHT-YELLOW (YELLOW); GLUCOSE, URINE (UA) 70 mg/dL (NEGATIVE); KETONES,URINE NEGATIVE (NEGATIVE); LEUKOCYTE ESTERASE ,URINE 25 Leu/uL (NEGATIVE); NITRATE,URINE NEGATIVE (NEGATIVE); OCCULT BLOOD,URINE SMALL (NEGATIVE); PH,URINE 5.5 (5.0-8.0); PROTEIN,URINE 100 mg/dL (NEGATIVE); UROBILINOGEN,URINE 0.2 mg/dL (0.2-1.0)
[2022-08-04 02:31] LABS: POTASSIUM 5.7 mmol/L (3.5-5.1)
[2022-08-04 02:35] LABS: ALBUMIN 3.1 g/dL (3.5-5.0); MAGNESIUM 2.1 mg/dL (1.80-2.40); TOTAL PROTEIN, SERUM 7.2 g/dL (6.0-8.3)
[2022-08-04 02:39] LABS: BACTERIA,URINE RARE /HPF (None Seen); MUCUS,URINE RARE LPF (None Seen); SQUAMOUS EPITHELIAL CELL,UR RARE /HPF (0-2)
[2022-08-04] MEDS ORDERED: ASPIRIN 81MG CHEW TAB ONE (02:47)
[2022-08-04] MEDS ORDERED: NITROGLYCERIN 1GM OINT 1 INCH/1GM TD ONE ×2 (02:47→03:00)
[2022-08-04] MEDS ORDERED: ASPIRIN 325MG TAB PO ONE (03:00)
[2022-08-04] MEDS ORDERED: ACETAMINOPHEN 325 MG TAB PO PRN (04:00)
[2022-08-04] MEDS ORDERED: LABETALOL 20MG SYG IV PRN (04:00)
[2022-08-04] MEDS ORDERED: MORPHINE 4 MG SYG IVP PRN (04:00)
[2022-08-04] MEDS ORDERED: ONDANSETRON 4MG INJ IVP PRN (04:00)
[2022-08-04] MEDS ORDERED: HYDRALAZINE 20MG/ML VIAL IV PRN (04:00)
[2022-08-04] MEDS ORDERED: NITROGLYCERIN 0.4 MG SL TAB SL PRN (04:00)
[2022-08-04] MEDS ORDERED: ALBUTEROL 0.083% 2.5 MG/3 ML INH IH PRN (04:00)
[2022-08-04] MEDS ORDERED: SODIUM BICARB 50MEQ 50ML VIAL IV ONE (04:30)
[2022-08-04] MEDS: NITROGLYCERIN 1GM OINT 1 INCH/1GM TD SCH ×3 (05:08→21:10)
[2022-08-04] MEDS: CEFTRIAXONE 2GM VIAL IVP SCH (05:40)
[2022-08-04 07:06] LABS: CREATININE 2.8 mg/dL (0.5-1.5); MAGNESIUM 2.1 mg/dL (1.80-2.40); PHOSPHORUS 5.2 mg/dL (2.5-4.9); POTASSIUM 5.2 mmol/L (3.5-5.1)
[2022-08-04 07:16] LABS: ABG BASE EXCESS -1.7 mmol/L (-2.0-3.0); ABG HCO3 22.8 mmol/L (21.0-28.0); ABG OXYGEN SATURATION 99.3 % (95.0-99.0); ABG PCO2 38 mmHg (32-45)
[2022-08-04] MEDS: INSULIN HUMULIN R 100 UNIT/ML 3ML SQ SCH ×5 (07:30→21:00)
[2022-08-04] MEDS: ASPIRIN 81MG CHEW TAB PO SCH (09:00)
[2022-08-04] MEDS ORDERED: LIDOCAINE HCL-MPF 1% 2ML VIAL IV PRN (17:00)
[2022-08-04] MEDS ORDERED: GLUCAGON 1MG KIT 1 MG ML IM PRN (17:00)
[2022-08-04] MEDS ORDERED: DEXTROSE 50%-WATER 50 ML DISP.SYRIN IV PRN (17:00)
[2022-08-04] MEDS ORDERED: POTASSIUM CHLORIDE 10MEQ/100ML 100 ML IV PRN (17:00)
[2022-08-04] MEDS ORDERED: KCL 20 MEQ ERTAB PO PRN (17:00)
[2022-08-04] MEDS ORDERED: POTASSIUM CHLORIDE 10% ELIXIR 20 MEQ/15 ML UDCUP PO PRN (17:00)
[2022-08-04] MEDS: FUROSEMIDE 40MG VIAL IV SCH (18:11)
[2022-08-04] MEDS: SIMVASTATIN 20 MG TABLET PO SCH (21:08)
[2022-08-04 23:26] VITALS: BP 108/53
[2022-08-04 23:59] VITALS: BP 108/53
[2022-08-05 03:53] LABS: HEMATOCRIT 23.2 % (36-48); MEAN CORPUSCULAR HEMOGLOBIN 29.4 pg (27.0-33.0); MEAN CORPUSCULAR HGB CONC 32.3 g/dL (32.0-36.0); RED BLOOD CELL COUNT(AUTO) 2.55 MIL/uL (4.00-5.50); RED CELL DISTRIBUTION WIDTH 14.4 % (11.0-15.5); WHITE BLOOD COUNT (AUTO) 11.1 K/uL (4.8-10.8)
[2022-08-05 04:03] VITALS: BP 122/49
[2022-08-05 04:05] LABS: % IRON SATURATION 8.3 % (22-44)
[2022-08-05 04:07] LABS: CREATININE 2.6 mg/dL (0.5-1.5); PHOSPHORUS 4.2 mg/dL (2.5-4.9); POTASSIUM 4.8 mmol/L (3.5-5.1)
[2022-08-05] MEDS: CEFTRIAXONE 2GM VIAL IVP SCH (05:37)
[2022-08-05] MEDS: INSULIN HUMULIN R 100 UNIT/ML 3ML SQ SCH ×7 (05:38→20:47)
[2022-08-05] MEDS: FUROSEMIDE 40MG VIAL IV SCH ×2 (05:38→18:41)
[2022-08-05] MEDS: NITROGLYCERIN 1GM OINT 1 INCH/1GM TD SCH ×3 (05:39→19:59)
[2022-08-05 07:58] VITALS: BP 106/57
[2022-08-05] MEDS: ASPIRIN 81MG CHEW TAB PO SCH (08:00)
[2022-08-05] MEDS ORDERED: AMOX/CLAV 500/125MG TAB PO SCH ×2 (09:00→17:00)
[2022-08-05] MEDS ORDERED: IRON SUCROSE COMPLEX 100 MG/5 ML VIAL IVP SCH (10:54)
[2022-08-05 12:00] VITALS: BP 120/53
[2022-08-05 16:00] VITALS: BP 121/61
[2022-08-05] MEDS ORDERED: FURO40TA5 PO (16:53)
[2022-08-05] MEDS ORDERED: AMOX-426 PO (16:53)
[2022-08-05] MEDS: SIMVASTATIN 20 MG TABLET PO SCH (19:59)
[2022-08-05 20:20] VITALS: BP 102/71
[2022-08-05] MEDS ORDERED: NON-FORMULARY MEDICATION 1 EACH (Simvastatin (Zocor) 40 MG) PO SCH (21:00)
[2022-08-05] MEDS ORDERED: METOPROLOL TARTRATE 25 MG TAB PO SCH (21:00)
[2022-08-06] MEDS ORDERED: LEVOTHYROXINE 125 MCG TABLET PO SCH (06:30)
[2022-08-06] MEDS ORDERED: NON-FORMULARY MEDICATION 1 EACH (Levothyroxine Sodium (Levothyroxine) 125 MCG) PO SCH (09:00)
[2022-08-06] MEDS ORDERED: IRON SUCROSE COMPLEX 100 MG in 0.9%NACL 50ML 50 ML IV SCH (09:00)
[2022-08-06] MEDS ORDERED: LISINOPRIL 20 MG TABLET PO SCH (09:00)
[2022-08-06] MEDS ORDERED: ASPIRIN 81MG CHEW TAB PO SCH (09:00)
[2022-08-06] MEDS ORDERED: Vitamin B Complex/Vit C/Folic Acid PO SCH (09:00)
[2022-08-06] MEDS ORDERED: FOLIC ACID 1 MG TABLET PO SCH (09:00)
[2022-08-06] MEDS ORDERED: NON-FORMULARY MEDICATION 1 EACH (Folic Acid 0.8 MG) PO SCH (09:00)
[2022-08-06] MEDS ORDERED: CLOPIDOGREL 75MG TAB PO SCH (09:00)
[2022-08-06] MEDS ORDERED: NON-FORMULARY MEDICATION 1 EACH (Ferrous Sulfate 325 MG) PO SCH (09:00)
[2022-08-06] MEDS ORDERED: FERROUS SULFATE 325 MG TABLET.DR PO SCH (09:00)
[2022-08-06] MEDS ORDERED: LORATADINE 10 MG TABLET PO SCH (09:00)
== END 2022-08-05 20:46 | disposition home or self-care (01) ==
LOC: EDH 01:31 → EDHIP 03:52 → 4BH 22:29
PROVIDERS: ADMIT Internal Medicine; ATTEND Internal Medicine
DX: I13.0 Hypertensive heart and chronic kidney disease with heart failure and stage 1 through stage 4 chronic kidney disease, or unspecified chronic kidney disease (principal); E11.22 Type 2 diabetes mellitus with diabetic chronic kidney disease; I50.23 Acute on chronic systolic (congestive) heart failure; N18.30 Chronic kidney disease, stage 3 unspecified; D63.1 Anemia in chronic kidney disease; J96.01 Acute respiratory failure with hypoxia; S00.03XA Contusion of scalp, initial encounter; S20.224A Contusion of middle back wall of thorax, initial encounter; S30.0XXA Contusion of lower back and pelvis, initial encounter; E78.5 Hyperlipidemia, unspecified; E03.9 Hypothyroidism, unspecified; I25.10 Atherosclerotic heart disease of native coronary artery without angina pectoris; E66.9 Obesity, unspecified; E46 Unspecified protein-calorie malnutrition; E83.42 Hypomagnesemia; D50.9 Iron deficiency anemia, unspecified; E11.51 Type 2 diabetes mellitus with diabetic peripheral angiopathy without gangrene; I21.4 Non-ST elevation (NSTEMI) myocardial infarction; N17.9 Acute kidney failure, unspecified; I34.0 Nonrheumatic mitral (valve) insufficiency; I45.9 Conduction disorder, unspecified; W18.30XA Fall on same level, unspecified, initial encounter; Y93.89 Activity, other specified; Y92.89 Other specified places as the place of occurrence of the external cause; Z51.5 Encounter for palliative care; Z66 Do not resuscitate; Z79.02 Long term (current) use of antithrombotics/antiplatelets; Z79.82 Long term (current) use of aspirin; Z79.899 Other long term (current) drug therapy
CPT/HCPCS: 83605 ×3; 96374; 96375 ×2; 82435; 82550 ×4; 82947; 83735 ×3; 84100 ×2; 83874 ×3; 84484 ×4; 84132; 84295; 80048 ×2; 80053; 82803 ×2; 83880 ×2; 85025; 85018; 87077; 87088; 87186; 87804 ×2; 82948 ×7; 82270; 81001; 36415 ×2; 87635; 71045 ×2; 99291; 93005; 36600; 94660; 84145; 96376; 84443; 83540; 83550; 80061; 85027; 97161; 97039; 97116; J1815 ×3; G0378 ×41; G0379; C9803; J3490; J0696 ×2; J1940 ×3; J1756